=== PATIENT | male | born 1965 | race Caucasian/White ===

== ENCOUNTER 2019-10-27 12:00 | Emergency (ER) | payer OTHER ==
[~2019-10-27] VITALS: Ht 182.9 cm; Wt 95.5 kg
[2019-10-27 12:51] VITALS: Ht 182.9 cm; Wt 95.5 kg
[2019-10-27 13:59] LABS: CALC OSMOLALITY 275 mosm/kg (275-300); CALCIUM 9.7 mg/dL (8.5-10.1); CARBON DIOXIDE 32.2 mmol/L (21.0-32.0); CHLORIDE - SERUM 102 mmol/L (98-107); CREATININE - SERUM 1.3 mg/dL (0.6-1.3); GLUCOSE 123 mg/dL (74-106); POTASSIUM - SERUM 4.1 mmol/L (3.5-5.1); SODIUM 137 mmol/L (136-145); UREA NITROGEN 16 mg/dL (7-18); eGFR NON AFRICAN AMERICAN 62 mL/min (90-120)
[2019-10-27 14:04] LABS: NITRITE NEGATIVE (NEGATIVE)
[2019-10-27 14:05] LABS: AMORPHOUS SEDIMENT <1+ /lpf (NONE SEEN); BACTERIA FEW /HPF (NONE SEEN); BILIRUBIN 1+ (NEGATIVE); EPITHELIAL CELLS RARE /hpf (0-5); KETONE NEGATIVE (NEGATIVE); UROBILINOGEN 4 mg/dL (< 2); WHITE CELLS - URINE RARE HPF (0-1)
[2019-10-27 14:06] LABS: ALBUMIN 3.9 g/dL (3.4-5.0); ALKALINE PHOSPHATASE 205 U/L (30-120); ALT (SGPT) 243 U/L (10-68); AMYLASE - SERUM 44 U/L (25-115); BASOPHILS 0.3 % (0-2); EOSINOPHILS 4.4 % (0-7); HEMOGLOBIN 16.4 g/dL (13.5-17.5); IMMATURE GRANULOCYTES 0.1 % (0-5); LIPASE 94 U/L (73-393); LYMPHOCYTES 16.8 % (15-50); MCHC 34.9 g/dL (31.0-37.0); MCV 94.6 fL (80.0-100.0); MEAN PLATELET VOLUME 10.8 fL (7.4-10.4); NEUTROPHILS 74.4 % (40-80); PLATELET COUNT 174 10x3/uL (130-400); PROTEIN - SERUM 7.3 g/dL (6.4-8.2); RBC 4.97 10x6/uL (4.20-6.10); RDW 13.5 % (11.5-14.5); TROPONIN-I < 0.017 ng/mL (0.000-0.060)
[2019-10-27 17:28] VITALS: BP 131/80
== END 2019-10-27 17:30 | disposition home or self-care (01) ==
LOC: D.ER 12:00
PROVIDERS: Family Medicine
DX: R74.8 Abnormal levels of other serum enzymes (principal); R10.9 Unspecified abdominal pain